=== PATIENT | female | born 1990 | race Caucasian/White ===

== ENCOUNTER 2022-06-30 14:46 | Emergency (ER) | payer BC ==
[~2022-06-30] VITALS: Ht 165.1 cm; Wt 52.2 kg
[2022-06-30] MEDS ORDERED: ONDANSETRON ODT8 MG PO (17:38)
[2022-06-30] MEDS ORDERED: REGLAN10 MG PO (17:38)
== END 2022-06-30 17:59 | disposition home or self-care (01) ==
LOC: ED 14:46
DX: K29.00 Acute gastritis without bleeding (principal)
CPT/HCPCS: 36415; 80053; 81001; 83690; 84703; 85025; 96361; 96374; 96375; 99284-25; J1790; J2405; J7030